=== PATIENT | male | born 1985 | race Caucasian/White ===

== ENCOUNTER 2018-04-10 12:36 | Emergency (ER) | payer MEDICAID ==
[2018-04-10 12:43] VITALS: BP 112/67
--- NOTE | 2018-04-10 13:10 | EDPHY ---
H & P Stated Complaint: wants help detoxing from meth, last used yesterday Time Seen by Provider: 04/10/18 13:10 - Medical/Surgical History Hx Asthma: No Hx Chronic Respiratory Disease: No Hx Diabetes: No Hx Cardiac Disease: No Hx Renal Disease: No Hx Cirrhosis: No Hx Alcoholism: No Hx HIV/AIDS: No Hx Splenectomy or Spleen Trauma: No Other PMH: bipolar, anxiety - Social History Smoking Status: Never smoked Constitutional: Initial Vital Signs Temperature (C) 36.6 C 04/10/18 12:42 Heart Rate 93 04/10/18 12:42 Respiratory Rate 18 04/10/18 12:42 Blood Pressure 112/67 04/10/18 12:42 O2 Sat (%) 96 04/10/18 12:42 O2 Delivery Mode Room Air Allergies/Adverse Reactions: No Known Allergies Allergy (Unverified 04/10/18 12:41) Home Medications: Medication Instructions Recorded Depakote 04/10/18 Gabapentin 04/10/18 Risperdal 04/10/18 traMADol 04/10/18 Medical Decision Making ED Course/Re-evaluation: CHIEF COMPLAINT: Wants detox from meth HISTORY OF PRESENT ILLNESS: The patient is a 33 y/o male with a history of methamphetamine abuse requesting detox from meth. He states that he last snorted meth yesterday. He declines injecting meth. He would like to be sent to the addiction recovery center for detox. No chest pain, shortness of breath, abdominal pain, urinary or bowel complaints, numbness, paresthesias, fevers. REVIEW OF SYSTEMS: A comprehensive 10 system review of systems is otherwise negative aside from elements mentioned in the history of present illness and medical decision making. PHYSICAL EXAM: HR, BP, O2 Sat, RR. Temp noted General Appearance: Alert, well hydrated, appropriate, and non-toxic appearing. Head: Atraumatic without scalp tenderness or obvious injury Eyes: Pupils equal, round, reactive to light and accommodation, EOMI, no trauma , no injection. Ears: Clear bilaterally, no perforation, normal landmarks Nose: Atraumatic, no rhinorrhea, clear. Throat: There is no erythema or exudates, no lesions, normal tonsils, mucus membranes moist. Neck: Supple, nontender, no lymphadenopathy. Respiratory: No retractions, no distress, no wheezes, and no accessory muscle use. Lungs are clear to auscultation bilaterally. Cardiovascular: Regular rate and rhythm, no murmurs, rubs, or gallops. Bilateral carotid, radial, dorsalis pedis, and posterior tibial pulses intact. Good capillary refill all extremities. Gastrointestinal: Abdomen is soft, nontender, non-distended, no masses, no rebound, no guarding, no peritoneal signs. Musculoskeletal: Normal active ROM of all extremities, atraumatic. Neurological: Alert, appropriate, and interactive. The patient has normal DTRs and non-focal cranial nerves, motor, sensory, and cerebellar exam. Skin: No rashes, good turgor, no nodules on palpation. Past medical history: Methamphetamine abuse, depression, anxiety Past surgical history: Denies Family history: Denies Social history: Single, not employed, transient DIAGNOSTICS/PROCEDURES/CRITICAL CARE TIME: Not indicated. DIFFERENTIAL DIAGNOSIS: The differential diagnosis for the patient's symptoms included but was not limited to methamphetamine abuse, medication side effect, drugs, and alcohol abuse. MEDICAL DECISION MAKING: The patient is a 33 y/o male with a history of methamphetamine abuse requesting detox from meth. He has a normal physical exam. I have offered to send him to the addiction recovery center, which he is comfortable with. Labs, imaging studies, and medications are not indicated at this time. Patient is safe to be discharged to the [facility]. Departure - Departure Disposition: Home, Routine, Self-Care Clinical Impression: Methamphetamine use Condition: Good Instructions: Methamphetamine Abuse (ED) Additional Instructions: 1. Go to the alcohol recovery center for methamphetamine detox. 2. Return to the emergency department immediately for fever, vomiting, confusion , headache, abdominal pain or other worsening of condition. 3. Followup with your primary care physician within 72 hours for reevaluation. Referrals: [facility] [Outside] - As per Instructions Report Scribed for: Alon Brady Report Scribed by: Bhavna Alexandre Date of Report: 04/10/18 Time of Report: 13:12
== END 2018-04-10 13:23 | disposition home or self-care (01) ==
DX: F15.10 Other stimulant abuse, uncomplicated (principal)